=== PATIENT | female | born 1955 | race African-American/Black ===

== ENCOUNTER 2019-07-23 05:44 | Day surgery (SDC) | payer OTHER ==
[~2019-07-23] VITALS: Ht 157.5 cm; Wt 70.9 kg
[~2019-07-23 05:44] MED LIST: ALBU8.5H8 IH; AUD NEB; CLOP75TA3 PO; DICL2100G TP; FLUT16H NASAL; GABA-1181 PO; METF-960 PO; MOME13HF2 IH; MONT10TA21 PO; OMEP20 PO; ROSU20TA23 PO; SERT100T12 PO; SODIUM CHLORIDE 0.9% 1,000 ML ONE; TIOT185 IH; TOPI100T37 PO; TRAM50TA4 PO
[2019-07-23] MEDS ORDERED: SODIUM CHLORIDE 0.9% 1,000 ML IV ONE (06:30)
[2019-07-23 06:50] LABS: GLUCOMETER DEV NAME(LOC) SDS.; GLUCOSE,POINT OF CARE 135 MG/DL (70-110)
== END 2019-07-23 06:20 | disposition home or self-care (01) ==
LOC: SURGERY 05:44
PROVIDERS: ATTEND Internal Medicine Critical Care Medicine
DX: R05 Cough (principal); Z53.8 Procedure and treatment not carried out for other reasons; J44.9 Chronic obstructive pulmonary disease, unspecified; G47.30 Sleep apnea, unspecified; M13.89 Other specified arthritis, multiple sites; E11.9 Type 2 diabetes mellitus without complications; F17.210 Nicotine dependence, cigarettes, uncomplicated; Z90.710 Acquired absence of both cervix and uterus; Z98.890 Other specified postprocedural states; Z86.010 Personal history of colon polyps; Z90.49 Acquired absence of other specified parts of digestive tract
CPT/HCPCS: 82962; J7030